=== PATIENT | male | born 1980 | race Hispanic/Latino ===

== ENCOUNTER 2018-12-22 21:45 | Emergency (ER) | payer OTHER ==
[~2018-12-22] VITALS: Ht 167.6 cm; Wt 95.7 kg
[2018-12-22] MEDS ORDERED: ONDANSETRON HCL INJ 2MG/ML 2ML 2 MG/ML VIAL ONE (22:05)
[2018-12-22] MEDS ORDERED: SODIUM CHLORIDE 0.9% 1000ML 1,000 ML ONE (22:06)
[2018-12-22] MEDS ORDERED: ACETAMINOPHEN 1000 MG/100 ML 100 ML IV ONE (22:06)
[2018-12-22] MEDS ORDERED: ONDANSETRON HCL INJ 2MG/ML 2ML 2 MG/ML VIAL IV STA (22:14)
[2018-12-22] MEDS ORDERED: ACETAMINOPHEN 1000 MG/100 ML IV STA (22:14)
[2018-12-22] MEDS ORDERED: SODIUM CHLORIDE 0.9% 1000ML 1,000 ML IV ONE (22:15)
[2018-12-22 22:19] LABS: BASOPHILS # (AUTO) 0.1 (0.0-0.1); BASOPHILS % 0.3 % (0.0-1.0); EOSINOPHILS # (AUTO) 0.3 (0.0-0.4); HEMATOCRIT 43.6 % (38.2-49.6); HEMOGLOBIN 15.8 g/dL (14.0-18.0); LYMPHOCYTES # (AUTO) 2.5 (1.0-3.2); LYMPHOCYTES % 15.5 % (18.0-39.1); MEAN CORPUSCULAR HEMOGLOBIN 30.6 pg (28-32); MEAN CORPUSCULAR HGB CONC 36.2 g/dL (31-35); MEAN CORPUSCULAR VOLUME 84.5 fL (81-99); MONOCYTES # (AUTO) 1.6 (0.2-0.8); MONOCYTES % 9.9 % (4.4-11.3); NEUTROPHILS # (AUTO) 11.4 (2.1-6.9); NEUTROPHILS % 71.6 % (38.7-80.0); PLATELET COUNT 246 x10e3/uL (140-360); RED BLOOD COUNT 5.16 x10e6/uL (4.3-5.7); RED CELL DISTRIBUTION WIDTH 12.7 % (11.7-14.4)
[2018-12-22 22:28] LABS: BILIRUBIN,URINE NEGATIVE (NEGATIVE); CLARITY,URINE CLEAR (CLEAR); COLOR,URINE YELLOW (YELLOW); KETONES,URINE NEGATIVE (NEGATIVE); LEUKOCYTE ESTERASE ,URINE NEGATIVE (NEGATIVE); NITRITE,URINE NEGATIVE (NEGATIVE); PROTEIN,URINE DIPSTICK NEGATIVE (NEGATIVE); URINE UROBILINOGEN 1 mg/dL (0.2 - 1)
[2018-12-22 22:38] LABS: BACTERIA,URINE FEW /HPF; EPITHELIAL CELLS,URINE FEW /LPF; RBC,URINE 0-5 /HPF (0-5); WBC,URINE (MAN) 0-5 /HPF (0-5)
[2018-12-22 22:43] LABS: ALANINE AMINOTRANSFERASE 52 IU/L (0-55); ALBUMIN 3.9 g/dL (3.5-5.0); ALBUMIN/GLOBULIN RATIO 0.9 (0.8-2.0); ALKALINE PHOSPHATASE 67 IU/L (40-150); ANION GAP 13.5 mmol/L (8-16); BLOOD UREA NITROGEN 14 mg/dL (7-26); BUN/CREATININE RATIO 12 (6-25); CARBON DIOXIDE 27 mmol/L (22-29); CHLORIDE 100 mmol/L (98-107); CREATININE, SERUM 1.18 mg/dL (0.72-1.25); EST GLOMERULAR FILTRATION RATE > 60 ML/MIN (60-); GLUCOSE 114 mg/dL (74-118); LIPASE 15 U/L (8-78); POTASSIUM 3.5 mmol/L (3.5-5.1); SODIUM 137 mmol/L (136-145)
[2018-12-22 23:10] LABS: LYMPHOCYTES % (MANUAL) 12 % (19-48); MONOCYTES % (MANUAL) 16 % (3.4-9.0); NEUTROPHILS % (MANUAL) 72 % (40-74)
[2018-12-23] MEDS ORDERED: SODIUM CHLORIDE 0.9% 50ML 50 ML ONE (00:06)
[2018-12-23] MEDS ORDERED: IOPAMIDOL 370 MG/ML 200 ML INFUS..BTL INJ ONE (00:07)
--- NOTE | 2018-12-23 00:52 | Diagnostic Imaging Report ---
EXAM: CT Abdomen and Pelvis WITH contrast INDICATION: ^abd pain COMPARISON: None. TECHNIQUE: Abdomen and pelvis were scanned utilizing a multidetector helical scanner from the lung base to the pubic symphysis after administration of IV contrast. Coronal and sagittal reformations were obtained. Dose modulation, iterative reconstruction, and/or weight based adjustment of the mA/kV was utilized to reduce the radiation dose to as low as reasonably achievable. Routine protocol was performed. Scan was performed when during portal venous phase. IV CONTRAST: 100 mL of Isovue-370 ORAL CONTRAST: Water COMPLICATIONS: None RADIATION DOSE: Total DLP: 819.41 mGy*cm Estimated effective dose: (DLP x 0.015 x size factor) mSv CTDIvol has been reviewed. It is below the limits set by the Radiation Protocol Committee (RPC). FINDINGS: LINES and TUBES: None. LOWER THORAX: Partially imaged 5 mm left lower lobe lung nodule (series 2, image 1). HEPATOBILIARY: Hepatomegaly. Diffuse hepatic steatosis. No focal hepatic lesions. No biliary ductal dilation. GALLBLADDER: No radio-opaque stones or sludge. No wall thickening. SPLEEN: No splenomegaly. PANCREAS: No focal masses or ductal dilatation. ADRENALS: No adrenal nodules KIDNEYS/URETERS: Kidneys enhance symmetrically. No hydronephrosis. No cystic or solid mass lesions. No stones. GI TRACT: No abnormal distention or evidence of bowel obstruction. Colonic diverticulosis with wall thickening and significant inflammation surrounding a segment of colon in left lower quadrant. Appendix is normal. PELVIC ORGANS/BLADDER: Unremarkable. LYMPH NODES: Numerous lymph nodes adjacent to the above-mentioned inflamed segment of sigmoid colon. VESSELS: Unremarkable. PERITONEUM / RETROPERITONEUM: No free air. Trace dependent reactive ascites. BONES: Unremarkable. SOFT TISSUES: Unremarkable. IMPRESSION: 1. Left lower quadrant diverticulitis. No definite evidence of perforation. No abscess formation. Numerous adjacent lymph nodes, likely reactive. 2. Enlarged steatotic liver. 3. 5 mm left lower lobe lung nodule. Without risk factors, no follow-up is necessary. With risk factors, follow-up with low-dose chest CT in one year is recommended. Signed by: Dr. Garrett Carter MD on 12/23/2018 12:48 AM
[2018-12-23] MEDS ORDERED: CIPROFLOXACIN 400 MG/D5W 200ML 200 ML IV STA (00:55)
[2018-12-23] MEDS ORDERED: METRONIDAZOLE 500MG/NS 100ML 100 ML IV STA (00:55)
[2018-12-23] MEDS ORDERED: METRONIDAZOLE 500MG/NS 100ML 100 ML IV ONE (01:02)
[2018-12-23] MEDS ORDERED: CIPROFLOXACIN 400 MG/D5W 200ML 200 ML IV ONE (01:02)
[2018-12-23] MEDS ORDERED: FLAGYL500 MG PO (01:03)
[2018-12-23] MEDS ORDERED: CIPRO500 MG PO (01:03)
[2018-12-23] MEDS ORDERED: ZOFRAN4 MG SL (01:03)
[2018-12-23 02:29] VITALS: BP 117/86
== END 2018-12-23 02:30 | disposition home or self-care (01) ==
LOC: ER 21:45
DX: R10.30 Lower abdominal pain, unspecified (principal); K57.32 Diverticulitis of large intestine without perforation or abscess without bleeding; F17.210 Nicotine dependence, cigarettes, uncomplicated
CPT/HCPCS: 36415; 74177; 80053; 81001; 83605; 83690; 85025; 99284; J0131; J0744; J2405; J7030; Q9967

== ENCOUNTER 2020-01-22 14:52 | Emergency (ER) | payer SELFPAY ==
[~2020-01-22] VITALS: Ht 167.6 cm; Wt 95.7 kg
[~2020-01-22 14:52] MED LIST: CIPRO500 MG PO; FLAGYL500 MG PO; ZOFRAN4 MG SL
--- OUTSIDE RECORDS SUMMARY | 2020-01-22 14:57 | XMS REPORT | Continuity of Care Document ---
Author Author [facility] Organization [facility] Address [address] [place] [address] Phone Unavailable Care Team Providers Care Glueline Worker Name Role Phone NO, PCP PCP Unavailable Ladonna MCMILLAN Attphys Unavailable Payers Payer Name Policy Type Policy Number Effective Date Expiration Date Ladonna Bagley [facility] [id number] 2012 00:00:00 [facility] Problems Condition Name Condition Details Condition Category Status Onset Date Resolution Date Last Treatment Date Treating Clinician Comments Source Abdominal pain Abdominal pain Problem Active 2015-06-11 00:00:00 [facility] Chest pain Chest pain Problem Active 2015-06-11 00:00:00 [facility] Non-traumatic rhabdomyolysis Non-traumatic rhabdomyolysis Problem Active 2015-06-11 00:00:00 [facility] Rhabdomyolysis Rhabdomyolysis Problem Active 2015-06-11 00:00:00 [facility] Allergies, Adverse Reactions, Alerts Allergy Name Allergy Type Status Severity Reaction(s) Onset Date Inacti ve Date Treating Clinician Comments Source GOJO Allergy to Substance Active HIVES 2018-12-22 00:00:00 [facility] Medications Ordered Medication Name Filled Medication Name Start Date Stop Da te Current Medication? Ordering Clinician Indication Dosage Frequency Signature (SIG) Comments Components Source Ciprofloxacin Hcl (Cipro) 500 Mg Tablet Ciprofloxacin Hcl (C ipro) 500 Mg Tablet 2018-12-23 00:00:00 Yes Tay Mcmillan Md 500 Twice A Day [facility] Metronidazole (Flagyl) 500 Mg Tablet Metronidazole (Flagyl) 500 Mg Tablet 2018-12-23 00:00:00 Yes Tay Mcmillan Md 500 Every 8 Hours [facility] Ondansetron Hcl (Zofran*) 4 Mg Tablet Ondansetron Hcl (Zofra n*) 4 Mg Tablet 2018-12-23 00:00:00 Yes Tay Mcmillan Md 4 Every 6 Hours as needed for Nausea [facility] Procedures Procedure Date / Time Performed Performing Clinician [facility] e Computed tomography of abdomen and pelvis with contrast 2018 00:00:00 TAY MCMILLAN [facility] Encounters Start Date/Time End Date/Time Encounter Type Admission Type Attendi [facility] Care Department Encounter ID Source 2018-12-22 21:45:00 2018-12-23 02:30:00 Departed Emergency Room 1 TAY MCMILLAN [facility] [id number] [facility] Results Test Description Test Time Test Comments Results Result Comments Source CT ABDOMEN/PELVIS W 2018-12-23 00:36:00 [place] [address] Patient Name: KORI MORRIS MR #: [id number] : 1980 Age/Sex: 38/M Req #: [id number] Adm Physician: Ordered by: TAY MCMILLAN MD Report #: [id number] Location: ER Room/Bed: Procedure: [id number] CT/CT ABDOMEN/PELVIS W Exam Date: Exam Time: REPORT STATUS: Signed EXAM: CT Abdomen and Pelvis WITH contrast INDICATION: abd pain COMPARISON: None. TECHNIQUE: Abdomen and pelvis were scanned utilizing a multidetector helical scanner from the lung base to the pubic symphysis after administration of IV contrast. Coronal and sagittal reformations were obtained. Dose modulation, iterative reconstruction, and/or weight based adjustment of the mA/kV was utilized to reduce the radiation dose to as low as reasonably achievable. Routine protocol was performed. Scan was performed when during portal venous phase. IV CONTRAST: 100 mL of Isovue-370 ORAL CONTRAST: Water COMPLICATIONS: None RADIATION DOSE: Total DLP: 819.41 mGy*cm Estimated effective dose: (DLP x 0.015 x size factor) mSv CTDIvol has been reviewed. It is below the limits set by the Radiation Protocol Committee (RPC). FINDINGS: LINES and TUBES: None. LOWER THORAX: Partially imaged 5 mm left lower lobe lung nodule (series 2, image 1). HEPATOBILIARY: Hepatomegaly. Diffuse hepatic steatosis. No focal hepatic lesions. No biliary ductal dilation. GALLBLADDER: No radio-opaque stones or sludge. No wall thickening. SPLEEN: No splenomegaly. PANCREAS: No focal masses or ductal dilatation. ADRENALS: No adrenal nodules KIDNEYS/URETERS: Kidneys enhance symmetrically. No hydronephrosis. No cystic or solid mass lesions. No stones. GI TRACT: No abnormal distention or evidence of bowel obstruction. Colonic diverticulosis with wall thickening and significant inflammation surrounding a segment of colon in left lower quadrant. Appendix is normal. PELVIC ORGANS/BLADDER: Unremarkable. LYMPH NODES: Numerous lymph nodes adjacent to the above-mentioned inflamed segment of sigmoid colon. VESSELS: Unremarkable. PERITONEUM / RETROPERITONEUM: No free air. Trace dependent reactive ascites. BONES: Unremarkable. SOFT TISSUES: Unremarkable. IMPRESSION: 1. Left lower quadrant diverticulitis. No definite evidence of perforation. No abscess formation. Numerous adjacent lymph nodes, likely reactive. 2. Enlarged steatotic liver. 3. 5 mm left lower lobe lung nodule. Without risk factors, no follow-up is necessary. With risk factors, follow-up with low-dose chest CT in one year is recommended. Signed by: Dr. Garrett Dooley MD on 12/23/2018 12:48 AM Dictated By: GARRETT DOOLEY MD Transcribed By: SHERINE on 12/23/1847 COPY TO: TAY MCMILLAN MD Lactic Acid Level 2018-12-22 23:19:00 Test Item Lactic Acid Level (test code = Lactic Acid Level) 12.8 4.5- 19.8 [facility] Total Cells Counted 2018-12-22 23:10:00* Test Item Value Reference Range Interpretation Comments Differential Total Cells Counted (test code = Differen tial Total Cells Counted) 100 [facility] HospitalNeutrophils % (Manual)2018-12-22 23:10:00 * Test Item Value Reference Range Interpretation Comments Neutrophils % (Manual) (test code = 99635-6) 72 40-74 [facility] HospitalLymphocytes % (Manual)2018-12-22 23:10:00 * Test Item Value Reference Range Interpretation Comments Lymphocytes % (Manual) (test code = 737-7) 12 19-48 L [facility]Monocytes % (Manual)2018-12-22 23:10:00* Test Item Value Reference Range Interpretation Comments Monocytes % (Manual) (test code = 744-3) 16 3.4-9.0 [facility] Mswgu3778-05-00 22:56:00* Test Item Value Reference Range Interpretation Comments Sodium Level (test code = 2951-2) 137 136-145 [facility]Potassium [id number] 22:56:00* Test Item Value Reference Range Interpretation Comments Potassium Level (test code = 2823-3) 3.5 3.5-5.1 [facility] HospitalChloride Gglki7585-12-12 22:56:00* Test Item Value Reference Range Interpretation Comments Chloride Level (test code = 2075-0) 100 98-107 [facility] HospitalCarbon Dioxide Cqyxb1516-40-54 22:56:00* Test Item Value Reference Range Interpretation Comments Carbon Dioxide Level (test code = 2028-9) 27 22-29 [facility] HospitalAnion [id number] 22:56:00* Test Item Value Reference Range Interpretation Comments Anion Gap (test code = 28286-4) 13.5 8-16 [facility] HospitalBlood Urea Ltsffwkt0896-07-78 22:56:00* Test Item Value Reference Range Interpretation Comments Blood Urea Nitrogen (test code = 3094-0) 14 7-26 [facility] HospitalCreatinine2019-05-04 22:56:00* Test Item Value Reference Range Interpretation Comments Creatinine (test code = 2160-0) 1.18 0.72-1.25 [facility] HospitalBUN/Creatinine Ebunx8355-96-45 22:56:00* Test Item Value Reference Range Interpretation Comments BUN/Creatinine Ratio (test code = 3097-3) 12 6-25 [facility] HospitalEstimat Glomerular Filtration Rate 2018-12-22 22:56:00* Test Item Value Reference Range Interpretation Comments Estimat Glomerular Filtration Rate (test code = 608446156) > 60 >60 Ranges were taken from the National Kidney Disease Education Program and the [facility] [employer] literature.Reference ranges:60 or greater: Bkpxei55-10 ( for 3 consecutive months): Chronic kidney disease 15 or less: Kidney failureMethodist Specialty and Transplant HospitalGlucose Xjrml5733-16-19 22:56:00* Test Item Value Reference Range Interpretation Comments Glucose Level (test code = QSE5197) 114 74-118 [facility] HospitalCalcium Mfxzz1060-00-58 22:56:00* Test Item Value Reference Range Interpretation Comments Calcium Level (test code = 11830-4) 11.0 8.4-10.2 H [facility] HospitalTotal Ywlzmrtsn6713-27-70 22:56:00* Test Item Value Reference Range Interpretation Comments Total Bilirubin (test code = 1975-2) 1.3 0.2-1.2 H [facility] HospitalAspartate Amino Transf (AST/SGOT) 2018-12-22 22:56:00* Test Item Value Reference Range Interpretation Comments Aspartate Amino Transf (AST/SGOT) (test code = Aspartate Amino Transf (AST/SGOT)) 28 5-34 [facility] HospitalAlanine Aminotransferase (ALT/SGPT) 2018-12-22 22:56:00* Test Item Value Reference Range Interpretation Comments Alanine Aminotransferase (ALT/SGPT) (test code = 1742-6) 52 0-55 [facility] HospitalTotal Oihzxjb0071-61-63 22:56:00* Test Item Value Reference Range Interpretation Comments Total Protein (test code = 2885-2) 8.2 6.5-8.1 H [facility] HospitalAlbumin2019-05-04 22:56:00* Test Item Value Reference Range Interpretation Comments Albumin (test code = 1751-7) 3.9 3.5-5.0 [facility] HospitalGlobulin2019-05-04 22:56:00* Test Item Value Reference Range Interpretation Comments Globulin (test code = 23733-7) 4.3 2.3-3.5 H [facility] HospitalAlbumin/Globulin Fqavl3038-29-89 22:56:00 * Test Item Value Reference Range Interpretation Comments Albumin/Globulin Ratio (test code = 1759-0) 0.9 0.8-2.0 [facility] HospitalAlkaline Cvqsrnrjbfh1890-49-53 22:56:00* Test Item Value Reference Range Interpretation Comments Alkaline Phosphatase (test code = 6768-6) 67 40-150 [facility] HospitalLipase2019-05-04 22:56:00* Test Item Value Reference Range Interpretation Comments Lipase (test code = 3040-3) 15 8-78 [facility] HospitalUrine [id number] 22:38:00* Test Item Value Reference Range Interpretation Comments Urine WBC (test code = 5821-4) 0-5 0-5 [facility] HospitalUrine [id number] 22:38:00* Test Item Value Reference Range Interpretation Comments Urine RBC (test code = 35477-0) 0-5 0-5 [facility] HospitalUrine Iimvwgpg9258-49-82 22:38:00* Test Item Value Reference Range Interpretation Comments Urine Bacteria (test code = 04470-8) FEW NONE [facility] HospitalUrine Epithelial Hpued0695-00-74 22:38:00 * Test Item Value Reference Range Interpretation Comments Urine Epithelial Cells (test code = 33600-9) FEW NONE [facility] HospitalUrine Cllxc9483-35-75 22:29:00* Test Item Value Reference Range Interpretation Comments Urine Color (test code = 5778-6) YELLOW YELLOW [facility] HospitalUrine Qcjplkd0749-31-28 22:29:00* Test Item Value Reference Range Interpretation Comments Urine Clarity (test code = 96507-0) CLEAR CLEAR [facility] HospitalUrine Specific Lmghvgh6122-57-94 22:29:00 * Test Item Value Reference Range Interpretation Comments Urine Specific [place] (test code = 5811-5) 1.025 1.010-1.02 5 [facility] HospitalUrine [id number] 22:29:00* Test Item Value Reference Range Interpretation Comments Urine pH (test code = 50965-9) 6 5-7 [facility] HospitalUrine Leukocyte Wrofknrc1901-01-12 22:29:00* Test Item Value Reference Range Interpretation Comments Urine Leukocyte Esterase (test code = 5799-2) NEGATIVE NEGATIVE [facility] Ibvrnrl5490-05-14 22:29:00* Test Item Value Reference Range Interpretation Comments Urine Nitrite (test code = 86012-7) NEGATIVE NEGATIVE [facility] Xyytbly1037-44-34 22:29:00* Test Item Value Reference Range Interpretation Comments Urine Protein (test code = 5804-0) NEGATIVE NEGATIVE [facility] Glucose (UA)2018-12-22 22:29:00* Test Item Value Reference Range Interpretation Comments Urine Glucose (UA) (test code = 2349-9) NEGATIVE NEGATIVE [facility] HospitalUrine Lpwvzaw9968-28-25 22:29:00* Test Item Value Reference Range Interpretation Comments Urine Ketones (test code = 15993-4) NEGATIVE NEGATIVE [facility] Bgjumgtjmuwz8086-41-89 22:29:00* Test Item Value Reference Range Interpretation Comments Urine Urobilinogen (test code = 42329-9) 1 0.2-1 [facility] HospitalUrine Rarsxeiaq2065-92-24 22:29:00* Test Item Value Reference Range Interpretation Comments Urine Bilirubin (test code = 1978-6) NEGATIVE NEGATIVE [facility] HospitalUrine Xnsvx7169-14-20 22:29:00* Test Item Value Reference Range Interpretation Comments Urine Blood (test code = 20812-4) TRACE NEGATIVE H [facility] HospitalWhite Blood Jvvcs8779-43-60 22:26:00* Test Item Value Reference Range Interpretation Comments White Blood Count (test code = 6690-2) 15.91 4.8-10.8 H [facility] HospitalRed Blood Tzshf6661-23-88 22:26:00* Test Item Value Reference Range Interpretation Comments Red Blood Count (test code = 789-8) 5.16 4.3-5.7 [facility] HospitalHemoglobin2019-05-04 22:26:00* Test Item Value Reference Range Interpretation Comments Hemoglobin (test code = 29058-0) 15.8 14.0-18.0 [facility] HospitalHematocrit2019-05-04 22:26:00* Test Item Value Reference Range Interpretation Comments Hematocrit (test code = 4544-3) 43.6 38.2-49.6 [facility] HospitalMean Corpuscular Biikqp6733-25-33 22:26:00* Test Item Value Reference Range Interpretation Comments Mean Corpuscular Volume (test code = 787-2) 84.5 81-99 [facility] HospitalMean Corpuscular Ngrlqhxzir2323-83-44 22:26:00* Test Item Value Reference Range Interpretation Comments Mean Corpuscular Hemoglobin (test code = 785-6) 30.6 28-32 [facility] HospitalMean Corpuscular Hemoglobin Concent 2018-12-22 22:26:00* Test Item Value Reference Range Interpretation Comments Mean Corpuscular Hemoglobin Concent (test code = 786-4) 36.2 31-35 H [facility] HospitalRed Cell Distribution Uvrem0336-92-85 22:26:00* Test Item Value Reference Range Interpretation Comments Red Cell Distribution Width (test code = 80187-2) 12.7 11.7 -14.4 [facility] HospitalPlatelet Xcexh9548-22-07 22:26:00* Test Item Value Reference Range Interpretation Comments Platelet Count (test code = 777-3) 246 140-360 [facility] HospitalNeutrophils (%) (Auto)2018-12-22 22:26:00 * Test Item Value Reference Range Interpretation Comments Neutrophils (%) (Auto) (test code = 43759-9) 71.6 38.7-80.0 [facility] HospitalLymphocytes (%) (Auto)2018-12-22 22:26:00 * Test Item Value Reference Range Interpretation Comments Lymphocytes (%) (Auto) (test code = 736-9) 15.5 18.0-39.1 L [facility] HospitalMonocytes (%) (Auto)2018-12-22 22:26:00* Test Item Value Reference Range Interpretation Comments Monocytes (%) (Auto) (test code = 5905-5) 9.9 4.4-11.3 [facility] HospitalEosinophils (%) (Auto)2018-12-22 22:26:00 * Test Item Value Reference Range Interpretation Comments Eosinophils (%) (Auto) (test code = 713-8) 2.0 0.0-6.0 [facility] HospitalBasophils (%) (Auto)2018-12-22 22:26:00* Test Item Value Reference Range Interpretation Comments Basophils (%) (Auto) (test code = 706-2) 0.3 0.0-1.0 [facility] HospitalIM GRANULOCYTES %2018-12-22 22:26:00* Test Item Value Reference Range Interpretation Comments IM GRANULOCYTES % (test code = IM GRANULOCYTES %) 0.7 0.0- 1.0 [facility] HospitalNeutrophils # (Auto)2018-12-22 22:26:00* Test Item Value Reference Range Interpretation Comments Neutrophils # (Auto) (test code = 751-8) 11.4 2.1-6.9 H [facility] HospitalLymphocytes # (Auto)2018-12-22 22:26:00* Test Item Value Reference Range Interpretation Comments Lymphocytes # (Auto) (test code = 28985-1) 2.5 1.0-3.2 [facility] HospitalMonocytes # (Auto)2018-12-22 22:26:00* Test Item Value Reference Range Interpretation Comments Monocytes # (Auto) (test code = 742-7) 1.6 0.2-0.8 H [facility] HospitalEosinophils # (Auto)2018-12-22 22:26:00* Test Item Value Reference Range Interpretation Comments Eosinophils # (Auto) (test code = 711-2) 0.3 0.0-0.4 [facility] HospitalBasophils # (Auto)2018-12-22 22:26:00* Test Item Value Reference Range Interpretation Comments Basophils # (Auto) (test code = 704-7) 0.1 0.0-0.1 [facility] HospitalAbsolute Immature Granulocyte (auto 2018-12-22 22:26:00* Test Item Value Reference Range Interpretation Comments Absolute Immature Granulocyte (auto (becky t code = Absolute Immature Granulocyte (auto) 0.11 0-0.1 H [facility]
[2020-01-22 17:04] LABS: BILIRUBIN,URINE NEGATIVE (NEGATIVE); CLARITY,URINE SL CLOUDY (CLEAR); COLOR,URINE STRAW (YELLOW); KETONES,URINE NEGATIVE (NEGATIVE); LEUKOCYTE ESTERASE ,URINE NEGATIVE (NEGATIVE); NITRITE,URINE NEGATIVE (NEGATIVE); PROTEIN,URINE DIPSTICK NEGATIVE (NEGATIVE); URINE UROBILINOGEN 0.2 mg/dL (0.2 - 1)
[2020-01-22 17:15] LABS: MUCUS,URINE FEW (RARE)
[2020-01-22 19:01] LABS: BASOPHILS # (AUTO) 0.1 (0.0-0.1); BASOPHILS % 0.4 % (0.0-1.0); EOSINOPHILS % 0.2 % (0.0-6.0); HEMATOCRIT 43.2 % (38.2-49.6); HEMOGLOBIN 14.3 g/dL (14.0-18.0); LYMPHOCYTES # (AUTO) 1.7 (1.0-3.2); LYMPHOCYTES % 9.4 % (18.0-39.1); MEAN CORPUSCULAR HEMOGLOBIN 27.8 pg (28-32); MEAN CORPUSCULAR HGB CONC 33.1 g/dL (31-35); MEAN CORPUSCULAR VOLUME 83.9 fL (81-99); MONOCYTES # (AUTO) 1.4 (0.2-0.8); MONOCYTES % 7.7 % (4.4-11.3); NEUTROPHILS # (AUTO) 15.1 (2.1-6.9); NEUTROPHILS % 81.6 % (38.7-80.0); PLATELET COUNT 275 x10e3/uL (140-360); RED BLOOD COUNT 5.15 x10e6/uL (4.3-5.7); RED CELL DISTRIBUTION WIDTH 14.7 % (11.7-14.4)
[2020-01-22 19:17] LABS: ALANINE AMINOTRANSFERASE 40 IU/L (0-55); ALBUMIN 4.2 g/dL (3.5-5.0); ALKALINE PHOSPHATASE 65 IU/L (40-150); BLOOD UREA NITROGEN 13 mg/dL (7-26); BUN/CREATININE RATIO 11 (6-25); CARBON DIOXIDE 26 mmol/L (22-29); CHLORIDE 101 mmol/L (98-107); CREATININE, SERUM 1.16 mg/dL (0.72-1.25); EST GLOMERULAR FILTRATION RATE > 60 ML/MIN (60-); GLUCOSE 107 mg/dL (74-118); SODIUM 138 mmol/L (136-145)
--- NOTE | 2020-01-22 19:59 | Diagnostic Imaging Report ---
EXAM: CT Abdomen and Pelvis WITHOUT contrast INDICATION: Pain. Prior diverticulitis. COMPARISON: 12/23/2018. TECHNIQUE: Abdomen and pelvis were scanned utilizing a multidetector helical scanner from the lung base to the pubic symphysis without administration of IV contrast. Absence of intravenous contrast decreases sensitivity for detection of focal lesions and vascular pathology. Coronal and sagittal reformations were obtained. Renal stone protocol was performed. IV CONTRAST: None. ORAL CONTRAST: Water RADIATION DOSE: Total DLP: 852.04 mGy*cm Estimated effective dose: (DLP x 0.015 x size factor) mSv COMPLICATIONS: None FINDINGS: LINES and TUBES: None. LOWER THORAX: Unremarkable HEPATOBILIARY: The liver is diffuse hypodense compared to the spleen, consistent with diffuse hepatic diffuse hepatic steatosis. No focal hepatic lesions. No biliary ductal dilation. GALLBLADDER: No radio-opaque stones or sludge. No wall thickening. SPLEEN: No splenomegaly. PANCREAS: No focal masses or ductal dilatation. ADRENALS: No adrenal nodules . KIDNEYS/URETERS: No hydronephrosis. No cystic or solid mass lesions. No stones. GI TRACT: Redemonstration of marked wall thickening of a segment of proximal sigmoid colon with underlying diverticula, and surrounding fat stranding as well as adjacent mildly enlarged lymph nodes, concerning for recurrent sigmoid diverticulitis. Recommend follow-up after treatment to document resolution and exclude underlying pathology such as neoplasm. No evidence of bowel obstruction. Appendix is normal. PELVIC ORGANS/BLADDER: Unremarkable. LYMPH NODES: No lymphadenopathy. VESSELS: Unremarkable. PERITONEUM / RETROPERITONEUM: No free air or fluid. BONES: Unremarkable. SOFT TISSUES: Unremarkable. IMPRESSION: 1. Findings suggestive of acute on chronic or recurrent sigmoid diverticulitis without abscess formation. Recommend follow-up after treatment to document resolution and exclude underlying pathology. 2. Hepatic steatosis. Signed by: Dr. Lux Puckett M.D. on 01/22/2020 7:56 PM
--- NOTE | 2020-01-22 20:42 | Emergency Department Note ---
History of Present Illnes History of Present Illness Chief Complaint: Abdominal Complaints History of Present Illness This is a 39 year old male HERE FOR STOMACH RASH THAT HAS BEEN PRESENT FOR 3 MONTHS AND LOWER ABDOMINAL PAIN AND PAIN WITH URINATION THAT STARTED THIS MORNING. Historian: Patient Arrival Mode: Car Onset (how long ago): month(s) (3) Location: LOWER ABD Quality: PAIN AND DYSURIA Radiation: non-radiation Severity: moderate Onset quality: gradual Duration (how long): month(s) (3) Timing of current episode: constant Progression: waxing and waning Context: recent illness Relieving factors: none Exacerbating factors: none Associated symptoms: other (RASH TO STOMACH WELL) Treatments prior to arrival: none Past Medical/Family History Physician Review I have reviewed the patient's past medical and family history. Any updates have been documented here. Past Medical History Recent Fever: No Clinical Suspicion of Infectio: No New/Unexplained Change in Ment: No Past Medical History: None Past Surgical History: None Social History Smoking Cessation: Never Smoker Alcohol Use: Occasional Any Illegal Drug Use: No Other Last Tetanus: UNK Review of Systems Review of Systems Constitutional: no symptoms EENTM: no symptoms Cardiovascular: no symptoms Respiratory: no symptoms Gastrointestinal: as per HPI Genitourinary: as per HPI Musculoskeletal: no symptoms Neurological: no symptoms Psychological: no symptoms Endocrine: no symptoms Hematological/Lymphatic: no symptoms Review of other systems All other systems reviewed and negative. Physical Exam Related Data Allergies: Uncoded Allergies: GOJO (Allergy, Unknown, HIVES, 12/22/18) Triage Vital Signs Vital Signs Date Time Temp Pulse Resp B/P (MAP) Pulse Ox O2 Delivery O2 Flow Rate FiO2 01/22/20 15:47 98.6 96 16 125/86 98 Vital signs reviewed: Yes Physical Exam CONSTITUTIONAL Constitutional: well-developed, well-nourished HENT HENT: normocephalic, atraumatic, oropharynx clear/moist, nose normal HENT L/R: left ext ear normal, right ext ear normal EYES Eyes: PERRL, conjunctivae normal NECK Neck: ROM normal PULMONARY Pulmonary: effort normal, breath sounds normal CARDIOVASCULAR Cardiovascular: regular rhythm, heart sounds normal, capillary refill normal, normal rate GASTROINTESTINAL Abdominal: soft, nontender, bowel sounds normal GENITOURINARY Genitourinary: exam deferred SKIN Skin: warm, dry MUSCULOSKELETAL Musculoskeletal: ROM normal NEUROLOGICAL Neurological: alert, oriented x 3, no gross motor or sensory deficits PSYCHOLOGICAL Psychological: mood/affect normal, judgement normal Results Laboratory Result Diagram: 01/22/20184901/22/201849 Laboratory Laboratory Tests Test 01/22/20 18:50 01/22/20 15:49 White Blood Count 18.48 x10e3/uL (4.8-10.8) Red Blood Count 5.15 x10e6/uL (4.3-5.7) Hemoglobin 14.3 g/dL (14.0-18.0) Hematocrit 43.2 % (38.2-49.6) Mean Corpuscular Volume 83.9 fL (81-99) Mean Corpuscular Hemoglobin 27.8 pg (28-32) Mean Corpuscular Hemoglobin Concent 33.1 g/dL (31-35) Red Cell Distribution Width 14.7 % (11.7-14.4) Platelet Count 275 x10e3/uL (140-360) Neutrophils (%) (Auto) 81.6 % (38.7-80.0) Lymphocytes (%) (Auto) 9.4 % (18.0-39.1) Monocytes (%) (Auto) 7.7 % (4.4-11.3) Eosinophils (%) (Auto) 0.2 % (0.0-6.0) Basophils (%) (Auto) 0.4 % (0.0-1.0) Neutrophils # (Auto) 15.1 (2.1-6.9) Lymphocytes # (Auto) 1.7 (1.0-3.2) Monocytes # (Auto) 1.4 (0.2-0.8) Eosinophils # (Auto) 0.0 (0.0-0.4) Basophils # (Auto) 0.1 (0.0-0.1) Absolute Immature Granulocyte (auto 0.13 x10e3/uL (0-0.1) Sodium Level 138 mmol/L (136-145) Potassium Level 4.0 mmol/L (3.5-5.1) Chloride Level 101 mmol/L (98-107) Carbon Dioxide Level 26 mmol/L (22-29) Anion Gap 15.0 mmol/L (8-16) Blood Urea Nitrogen 13 mg/dL (7-26) Creatinine 1.16 mg/dL (0.72-1.25) Estimat Glomerular Filtration Rate > 60 ML/MIN (60-) BUN/Creatinine Ratio 11 (6-25) Glucose Level 107 mg/dL (74-118) Calcium Level 10.0 mg/dL (8.4-10.2) Total Bilirubin 0.7 mg/dL (0.2-1.2) Aspartate Amino Transf (AST/SGOT) 26 IU/L (5-34) Alanine Aminotransferase (ALT/SGPT) 40 IU/L (0-55) Alkaline Phosphatase 65 IU/L (40-150) Total Protein 8.3 g/dL (6.5-8.1) Albumin 4.2 g/dL (3.5-5.0) Globulin 4.1 g/dL (2.3-3.5) Albumin/Globulin Ratio 1.0 (0.8-2.0) Urine Color Straw (YELLOW) Urine Clarity Sl cloudy (CLEAR) Urine pH 5.5 (5 - 7) Urine Specific Story 1.030 (1.010-1.025) Urine Protein Negative (NEGATIVE) Urine Glucose (UA) Negative (NEGATIVE) Urine Ketones Negative (NEGATIVE) Urine Blood Negative (NEGATIVE) Urine Nitrite Negative (NEGATIVE) Urine Bilirubin Negative (NEGATIVE) Urine Urobilinogen 0.2 mg/dL (0.2 - 1) Urine Leukocyte Esterase Negative (NEGATIVE) Urine RBC None /HPF (0-5) Urine WBC None /HPF (0-5) Urine Epithelial Cells None /LPF (NONE) Urine Bacteria None /HPF (NONE) Urine Mucus Few (RARE) Lab results reviewed: Yes Imaging Imaging results reviewed: Yes Impressions Procedure: [id number] CT/CT ABDOMEN/PELVIS WO Exam Date: Exam Time: REPORT STATUS: Signed EXAM: CT Abdomen and Pelvis WITHOUT contrast INDICATION: Pain. Prior diverticulitis. COMPARISON: 12/23/2018. TECHNIQUE: Abdomen and pelvis were scanned utilizing a multidetector helical scanner from the lung base to the pubic symphysis without administration of IV contrast. Absence of intravenous contrast decreases sensitivity for detection of focal lesions and vascular pathology. Coronal and sagittal reformations were obtained. Renal stone protocol was performed. IV CONTRAST: None. ORAL CONTRAST: Water RADIATION DOSE: Total DLP: 852.04 mGy*cm Estimated effective dose: (DLP x 0.015 x size factor) mSv COMPLICATIONS: None FINDINGS: LINES and TUBES: None. LOWER THORAX: Unremarkable HEPATOBILIARY: The liver is diffuse hypodense compared to the spleen, consistent with diffuse hepatic diffuse hepatic steatosis. No focal hepatic lesions. No biliary ductal dilation. GALLBLADDER: No radio-opaque stones or sludge. No wall thickening. SPLEEN: No splenomegaly. PANCREAS: No focal masses or ductal dilatation. ADRENALS: No adrenal nodules . KIDNEYS/URETERS: No hydronephrosis. No cystic or solid mass lesions. No stones. GI TRACT: Redemonstration of marked wall thickening of a segment of proximal sigmoid colon with underlying diverticula, and surrounding fat stranding as well as adjacent mildly enlarged lymph nodes, concerning for recurrent sigmoid diverticulitis. Recommend follow-up after treatment to document resolution and exclude underlying pathology such as neoplasm. No evidence of bowel obstruction. Appendix is normal. PELVIC ORGANS/BLADDER: Unremarkable. LYMPH NODES: No lymphadenopathy. VESSELS: Unremarkable. PERITONEUM / RETROPERITONEUM: No free air or fluid. BONES: Unremarkable. SOFT TISSUES: Unremarkable. IMPRESSION: 1. Findings suggestive of acute on chronic or recurrent sigmoid diverticulitis without abscess formation. Recommend follow-up after treatment to document resolution and exclude underlying pathology. 2. Hepatic steatosis. Signed by: Dr. Lux Redding M.D. on 01/22/2020 7:56 PM Dictated By: JENNY REDDING MD, MD 56 Transcribed By: SHERINE on 01/22/201955 COPY TO: FARRAH WATSON MD~ Critical Care Time Subsequent provider I assumed direction of critical care for this patient from another provider of my specialty. Assessment & Plan Assessment & Plan Final Impression: (1) DVTRCLI OF LG INT W/O PERFORATION OR ABSCESS W/O BLEEDING (2) RASH AND OTHER NONSPECIFIC SKIN ERUPTION (3) Abdominal pain Assessment & Plan PT RASH TO TRUNK FOR 3 MONTHS AND LLQ PAIN STARTING THIS AM, CBC, CMP, UA, CT ABD/PELVIS ORDERED TO EVAL FOR ELECTROLYTE ABNORMALITY, ELEVATED LFT'S, UTI, HEMATURIA, KIDNEY STONE, DIVERTICULITIS, COLITIS, PT FOUND TO HAVE A WBC OF 18k AND CT ABD/PELVIS REVEALS UNCOMPLICATED DIVERTICULITIS PT DISCHARGED WITH FOLLOWING SCRIPTS CIPRO 500 MG PO BID FOR 14 DAYS FLAGYL 500 MG PO BID FOR 14 DAYS TYLENOL #3 1 PO Q 6 HOURS PRN PAIN #20 ZOFRAN ODT 4 MG SL Q 6 HOURS PRN NAUSEA PT 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
== END 2020-01-22 20:50 | disposition home or self-care (01) ==
LOC: ER 14:55
DX: R21 Rash and other nonspecific skin eruption (principal); R30.0 Dysuria; R10.30 Lower abdominal pain, unspecified; K57.32 Diverticulitis of large intestine without perforation or abscess without bleeding; K76.0 Fatty (change of) liver, not elsewhere classified
CPT/HCPCS: 36415; 74176; 80053; 81001; 85025; 93005; 99284

== ENCOUNTER 2021-01-05 18:10 | Emergency (ER) | payer BC, OTHER ==
[~2021-01-05] VITALS: Ht 167.6 cm; Wt 95.7 kg
[2021-01-05] MEDS ORDERED: KETOROLAC TROMETHAMINE 30 MG/ML VIAL IV NR (19:03)
[2021-01-05] MEDS ORDERED: ONDANSETRON HCL INJ 2MG/ML 2ML 2 MG/ML VIAL IV NR (19:15)
[2021-01-05 19:17] LABS: BASOPHILS # (AUTO) 0.1 (0.0-0.1); BASOPHILS % 0.4 % (0.0-1.0); EOSINOPHILS # (AUTO) 0.2 (0.0-0.4); EOSINOPHILS % 0.9 % (0.0-6.0); HEMATOCRIT 46.4 % (38.2-49.6); HEMOGLOBIN 16.1 g/dL (14.0-18.0); LYMPHOCYTES # (AUTO) 1.9 (1.0-3.2); LYMPHOCYTES % 10.2 % (18.0-39.1); MEAN CORPUSCULAR HEMOGLOBIN 29.9 pg (28-32); MEAN CORPUSCULAR HGB CONC 34.7 g/dL (31-35); MEAN CORPUSCULAR VOLUME 86.1 fL (81-99); MONOCYTES # (AUTO) 1.4 (0.2-0.8); MONOCYTES % 7.7 % (4.4-11.3); NEUTROPHILS # (AUTO) 14.7 (2.1-6.9); NEUTROPHILS % 80.1 % (38.7-80.0); PLATELET COUNT 293 x10e3/uL (140-360); RED BLOOD COUNT 5.39 x10e6/uL (4.3-5.7); RED CELL DISTRIBUTION WIDTH 13.1 % (11.7-14.4)
[2021-01-05 19:25] LABS: CLARITY,URINE SL CLOUDY (CLEAR); COLOR,URINE AMBER (YELLOW); KETONES,URINE NEGATIVE (NEGATIVE); LEUKOCYTE ESTERASE ,URINE NEGATIVE (NEGATIVE); NITRITE,URINE NEGATIVE (NEGATIVE); PROTEIN,URINE DIPSTICK NEGATIVE (NEGATIVE); URINE UROBILINOGEN 0.2 mg/dL (0.2 - 1)
[2021-01-05] MEDS ORDERED: SODIUM CHLORIDE 0.9% 1000ML 1,000 ML IV ONE (19:30)
[2021-01-05] MEDS ORDERED: CEFEPIME HCL 1 GM VIAL IV ONE (19:30)
[2021-01-05 19:38] LABS: ALANINE AMINOTRANSFERASE 45 IU/L (0-55); ALBUMIN 4.2 g/dL (3.5-5.0); ALBUMIN/GLOBULIN RATIO 1.1 (0.8-2.0); ALKALINE PHOSPHATASE 62 IU/L (40-150); AMYLASE 42 U/L (25-125); BLOOD UREA NITROGEN 15 mg/dL (7-26); BUN/CREATININE RATIO 16 (6-25); CALCIUM 9.9 mg/dL (8.4-10.2); CARBON DIOXIDE 25 mmol/L (22-29); CHLORIDE 102 mmol/L (98-107); CREATININE, SERUM 0.96 mg/dL (0.72-1.25); EST GLOMERULAR FILTRATION RATE > 60 ML/MIN (60-); GLUCOSE 109 mg/dL (74-118); LIPASE 12 U/L (8-78); SODIUM 139 mmol/L (136-145)
[2021-01-05 19:39] LABS: BACTERIA,URINE RARE /HPF; RBC,URINE 0-5 /HPF (0-5); WBC,URINE (MAN) 0-5 /HPF (0-5)
[2021-01-05 19:40] LABS: MUCUS,URINE FEW (RARE)
[2021-01-05] MEDS ORDERED: CEFEPIME HCL 1GM 1 GM in SODIUM CHLORIDE 0.9% 50ML 50 ML IV ONE (19:45)
[2021-01-05] MEDS ORDERED: SODIUM CHLORIDE 0.9% 50ML 50 ML ONE (20:07)
[2021-01-05] MEDS ORDERED: IOPAMIDOL 370 MG/ML 200 ML INFUS..BTL INJ ONE (20:08)
[2021-01-05] MEDS ORDERED: MORPHINE SULFATE INJ 4 MG/ML INJ 1ML IV PRN (20:15)
[2021-01-05] MEDS ORDERED: ZOFRAN4 MG PO (21:44)
[2021-01-05] MEDS ORDERED: FLAGYL500 MG PO (21:44)
[2021-01-05] MEDS ORDERED: CIPRO500 MG PO (21:44)
[2021-01-05] MEDS ORDERED: ULTRAM50 MG PO (21:44)
[2021-01-05 23:38] VITALS: BP 133/65
== END 2021-01-05 22:30 | disposition home or self-care (01) ==
LOC: ER 19:03
DX: R10.32 Left lower quadrant pain (principal); R11.2 Nausea with vomiting, unspecified; R30.0 Dysuria; K57.32 Diverticulitis of large intestine without perforation or abscess without bleeding
CPT/HCPCS: 36415; 74177; 80053; 81001; 82150; 83605; 83690; 85025; 87040; 99284; J0692; J1885; J2405; J7030; Q9967

== ENCOUNTER 2022-03-14 15:03 | Emergency (ER) | payer BC ==
[~2022-03-14] VITALS: Ht 167.6 cm; Wt 112.9 kg
[~2022-03-14 15:03] MED LIST changes: +ULTRAM50 MG PO; +ZOFRAN4 MG PO
[2022-03-14] MEDS ORDERED: IBUPROFEN 600 MG TAB PO STA (16:16)
[2022-03-14] MEDS ORDERED: CEPHALEXIN 500 MG CAP PO ONE (16:30)
[2022-03-14] MEDS ORDERED: CEPHALEXIN500 MG PO (18:00)
[2022-03-14] MEDS ORDERED: IBUPROFEN600 MG PO (18:00)
== END 2022-03-14 18:13 | disposition home or self-care (01) ==
LOC: ER 15:09
DX: M25.561 Pain in right knee (principal); L03.115 Cellulitis of right lower limb; L30.9 Dermatitis, unspecified; F17.210 Nicotine dependence, cigarettes, uncomplicated
CPT/HCPCS: 93971; 99284

== ENCOUNTER 2024-07-18 00:55 | Emergency (ER) | payer OTHER ==
[~2024-07-18] VITALS: Ht 167.6 cm; Wt 110.2 kg
[~2024-07-18 00:55] MED LIST changes: +CEPHALEXIN500 MG PO; +IBUPROFEN600 MG PO
[2024-07-18 00:59] VITALS: TEMP 98
[2024-07-18] MEDS: KETOROLAC TROMETHAMINE 60 MG/2 ML VIAL IM STA (01:21)
[2024-07-18 01:41] LABS: CLARITY,URINE CLEAR (CLEAR); COLOR,URINE YELLOW (YELLOW); LEUKOCYTE ESTERASE ,URINE NEGATIVE (NEGATIVE); PH,URINE 6.5 (5 - 7)
[2024-07-18 01:42] LABS: AMPHETAMINES SCREEN,URINE NEGATIVE (NEGATIVE); BENZODIAZEPINES SCREEN,URINE NEGATIVE (NEGATIVE); BILIRUBIN,URINE NEGATIVE (NEGATIVE); CANNABINOIDS SCREEN,URINE NEGATIVE (NEGATIVE); COCAINE SCREEN,URINE NEGATIVE (NEGATIVE); GLUCOSE, URINE 500 (NEGATIVE); KETONES,URINE NEGATIVE (NEGATIVE); NITRITE,URINE NEGATIVE (NEGATIVE); OPIATES SCREEN,URINE NEGATIVE (NEGATIVE); PHENCYCLIDINE SCREEN,URINE NEGATIVE (NEGATIVE); PROTEIN,URINE DIPSTICK NEGATIVE (NEGATIVE); URINE UROBILINOGEN 0.2 mg/dL (0.2 - 1)
[2024-07-18 01:43] LABS: METHADONE SCREEN, URINE NEGATIVE (NEGATIVE)
[2024-07-18 01:54] LABS: RBC,URINE 0-5 /HPF (0-5); WBC,URINE (MAN) 0-5 /HPF (0-5)
[2024-07-18 01:56] LABS: BACTERIA,URINE FEW /HPF
[2024-07-18 02:10] LABS: CORONAVIRUS COVID-19 AG NEGATIVE (NEGATIVE); INFLUENZA A AG NEGATIVE (NEGATIVE); INFLUENZA B AG NEGATIVE (NEGATIVE)
[2024-07-18] MEDS ORDERED: PREDNISONE20 MG PO (02:41)
[2024-07-18] MEDS ORDERED: VENTOLIN HFA18 GM INH (02:41)
[2024-07-18] MEDS: HYDRALAZINE HCL 20 MG/ML VIAL IV STA (02:48)
[2024-07-18] MEDS ORDERED: KETOROLAC TROME10 MG PO (02:52)
[2024-07-18 02:55] VITALS: PULSE 71; RESP 18
[2024-07-18 03:08] VITALS: BP 131/81; O2SAT 99
== END 2024-07-18 03:10 | disposition home or self-care (01) ==
LOC: ER 01:01
DX: R05.9 Cough, unspecified (principal); Z11.52 Encounter for screening for COVID-19
CPT/HCPCS: 71046; 80307; 81001; 87428; 93005; 99283; J1885

== ENCOUNTER 2025-02-24 13:17 | Emergency (ER) | payer OTHER ==
[~2025-02-24] VITALS: Ht 167.6 cm; Wt 111.1 kg
[~2025-02-24 13:17] MED LIST changes: +KETOROLAC TROME10 MG PO; +PREDNISONE20 MG PO; +VENTOLIN HFA18 GM INH
[2025-02-24 15:35] LABS: BASOPHILS % 0.7 % (0.0-1.0); EOSINOPHILS % 3.2 % (0.0-6.0); LYMPHOCYTES % 28.4 % (18.0-39.1); MONOCYTES % 7.3 % (4.4-11.3); NEUTROPHILS % 59.3 % (38.7-80.0); RED CELL DISTRIBUTION WIDTH 13.2 % (11.7-14.4)
[2025-02-24 15:51] LABS: LEUKOCYTE ESTERASE ,URINE NEGATIVE (NEGATIVE); PROTEIN,URINE DIPSTICK 1+ (NEGATIVE)
[2025-02-24 15:52] LABS: URINE UROBILINOGEN 0.2 mg/dL (0.2 - 1)
[2025-02-24 16:00] LABS: EST GLOMERULAR FILTRATION RATE 110.0 ML/MIN (>=60)
[2025-02-24 16:43] VITALS: PULSE 70; RESP 16; TEMP 97.8; O2SAT 100
[2025-02-24] MEDS ORDERED: NAPROXEN375 MG PO (16:47)
== END 2025-02-24 16:51 | disposition home or self-care (01) ==
LOC: ER 16:34
DX: M54.50 Low back pain, unspecified (principal); M25.562 Pain in left knee
CPT/HCPCS: 36415; 80048; 81001; 85025; 99283